=== PATIENT | female | born 1970 | race Caucasian/White ===

== ENCOUNTER 2023-12-17 09:37 | Emergency (ER) | payer BC, SELFPAY ==
[2023-12-17 09:47] VITALS: BP 107/65
[2023-12-17 10:18] LABS: COVID-19 Antigen Negative (Negative)
--- NOTE | 2023-12-17 11:21 | ED.GENMED ---
History of Present Illness
General
Chief Complaint: Fever
Source: patient
Exam Limitations: none
Time Seen by Provider: 12/17/23 11:15
Nursing documentation reviewed up to this point in time: agreed with
Travel History
Have you had any contact with someone who has COVID-19?: No
Do you have any symptoms of coronavirus? Fever > 100 degrees, chills, cough, shortness of breath, sore throat, loss of taste or smell, muscle aches, or headache?: No
History of Present Illness
History of Present Illness:
53-year-old female with no significant past medical history states 3 days ago developed cough, fever (max 101), fatigue. Saw 3 days ago, given Cefpodoxime BID and Tessalon Perles. Had CXR she was told was normal.
History of ever since I had COVID in 2020, right hand fingertip numbness 'whenever I get sick' that lasts for about 2 weeks after her illness and then dissipates. With this illness her right hand feels numb up to the wrist and her right foot feels
numb to a lesser extent. Her pulse ox at home at times goes to 92% RA she states.
Past History
Past History
ED Past Medical History: None
ED Past Surgical History: and Orthopedic
Social History
Tobacco: Non-smoker
Alcohol: Occasional
Personal:
Living: with family
Employment: Employed (nurse)
Review of Systems
Review of Systems
Allergies reviewed?: Yes
All Other Systems: ROS reviewed and negative except as documented in HPI and ROS
Constitutional: Reports fever and fatigue
EENT: Denies sore throat
Respiratory: Reports cough; Denies trouble breathing
Cardiac: Denies chest pain
ABD/GI: Reports nausea; Denies abdominal pain, vomiting or diarrhea
: Denies dysuria, difficulty voiding or urgency
Musculoskeletal: Denies edema, neck pain or back pain
Skin: Reports no symptoms
Neurological: Reports headache (generalized ) and numbness (as described in HPI); Denies dizzy or weakness
Phy Exam
Physical Exam
Physical Exam:
GENERAL: No acute distress. A&Ox3.
CONSTITUTIONAL: Afebrile.
EYES: Clear, conjunctivae normal
Neck: Supple
ENMT: moist mucus membranes, Pharynx nl
RESPIRATORY: Regular respirations, nonlabored, lungs clear.
CARDIOVASCULAR: Regular rate and rhythm, no murmurs, no rubs. Coarse junky cough. Pulse ox 95% RA
GI: Soft, nontender
MUSCULOSKELETAL: Moves with ease. Well perfused.
SKIN: Warm, dry, pink
PSYCH: Normal mood and affect. Well kept, interactive and appropriate
NEUROLOGIC: Awake, alert and oriented. No focal neurological deficits
Course
Orders/Labs/Results
Orders:
Orders
12/17/23 09:54
COVID-19 Antigen Urgent
Source: Nasal Swab
Influenza A+B Rapid Molecular Urgent
PK Source: Nasal Swab
Specimen Description:
Vital Signs
Initial and Last Documented VS:
Initial Vital Signs
Temp Pulse Resp BP Pulse Ox
99.9 F 90 18 107/65 95
12/17/23 09:47 12/17/23 09:47 12/17/23 09:47 12/17/23 09:47 12/17/23 09:47
Last Documented Vital Signs
Temp Pulse Resp BP Pulse Ox
99.9 F 90 18 107/65 95
12/17/23 09:47 12/17/23 09:47 12/17/23 09:47 12/17/23 09:47 12/17/23 09:47
Indexer consulted with Physician
Indexer consulted with physician?: Yes
Name of Physician Consulted: Ritchie
MDM/Problems Addressed
Differential Diagnosis Includes:
Covid, Influenza, PNA
paresthesias: Hypercapnia, hyperventilation, radiculopathy
MDM/Problems Addressed:
53-year-old female with no significant past medical history states 3 days ago developed cough, fever (max 101), fatigue. Saw UC 3 days ago, given Cefpodoxime BID and Tessalon Perles. Had CXR she was told was normal.
History of ever since I had COVID in 2020, right hand fingertip numbness 'whenever I get sick' that lasts for about 2 weeks after her illness and then dissipates. With this illness her right hand feels numb up to the wrist and her right foot feels
numb to a lesser extent. Her pulse ox at home at times goes to 92% RA she states.
Paresthesias are not in any particular dermatome as with spinal radiculopathy, no central neurologic signs, not sure the cause of the peripheral paresthesias
Strength equal throughout, UE brachial reflexes normal. No indication for head CT.
12/17/2023 1206 PM
COVID-negative
Flu positive
No hypoxemia
Referred to Neurology if paresthesias persists beyond the usual 2-3 weeks after illness subsides or if they get worse.
Pt ambulated out with normal gait at discharge
*Critical Care Note
Total Time (30-74mins, 75-104mins- exclusive of procedures): Not Applicable
ED Attending Note
-
Portions of this chart may have been created with voice recognition software.� Occasional wrong word or��sound alike� substitutions may have occurred due to the inherent limitations of voice recognition software.
Discharge Plan
Departure
Patient Disposition: Home (Routine Discharge)
Date of Disposition: 12/17/23
Time of Disposition: 11:49
Patient with high blood pressure during this ER visit?: No
Covid-19: Negative COVID-19
Discharge Problem:
Influenza A
Instructions: Flu, Adult (DC), Fever, Adult (DC)
Referrals:
Mitul Sifuentes MD [Active] - As needed
Rhys Beckman MD [Family Provider] - As needed
Stand Alone Forms: Return to Work
Activity Restrictions/Additional Instructions:
Discussed, Tylenol or ibuprofen as needed for body aches, headache, fever. Drink plenty of fluids.
See your doctor or the neurologist if your paresthesias in your right hand and right foot continue for more than a few weeks it has taken in the past to resolve after an illness.
See them sooner if symptoms worsen or anything concerns you.
Interventions
Interventions:
*Risk Screen - Suicide Last Done: 12/17/23 09:47
*General Assessment Last Done: 12/17/23 09:47
*Neglect/Abuse Screening Last Done: 12/17/23 09:47
ED- Fall Risk Assessment Last Done: 12/17/23 12:02
*ED COVID-19 Vaccine History Last Done: 12/17/23 12:01
*Nursing Disposition Last Done: 12/17/23 12:03
ED- Neurological Assessment Last Done: 12/17/23 12:02
ED-Skin Assessment Last Done: 12/17/23 12:02
Discharge Date and Time
Discharge Date/Time: 12/17/23 12:03
== END 2023-12-17 12:03 | disposition home or self-care (01) ==
LOC: EMR 09:37
PROVIDERS: Student in an Organized Health Care Education/Training Program; EMERGENCY PHYSICIAN Emergency Medicine; FAMILY PHYSICIAN Family Medicine
DX: J10.1 Influenza due to other identified influenza virus with other respiratory manifestations (principal); Z11.52 Encounter for screening for COVID-19
CPT/HCPCS: 99283; 87502; 87811

== ENCOUNTER 2025-01-15 06:21 | Day surgery (SDC) | payer OTHER, SELFPAY | END 2025-01-15 12:38 | disposition home or self-care (01) | LOC: GI 06:21 | PROVIDERS: ATTENDING PHYSICIAN Internal Medicine Gastroenterology | DX: K57.30 Diverticulosis of large intestine without perforation or abscess without bleeding (principal); Z83.710 Family history of adenomatous and serrated polyps | CPT/HCPCS: 45378 ==

== ENCOUNTER → 2025-07-01 07:23 | Outpatient (REF) | payer OTHER, SELFPAY | LOC: WDC 07:23 | PROVIDERS: ATTENDING PHYSICIAN Obstetrics & Gynecology Gynecology; FAMILY PHYSICIAN Family Medicine | DX: Z12.31 Encounter for screening mammogram for malignant neoplasm of breast (principal) | CPT/HCPCS: 77063; 77067 ==